=== PATIENT | female | born 1970 | race African-American/Black ===

== ENCOUNTER 2024-03-11 07:58 | Emergency (ER) | payer OTHER ==
[2024-03-11] MEDS ORDERED: Ketorolac Tromethamine 30 MG (1 mL) VIAL ONE (08:29)
== END 2024-03-11 08:48 | disposition home or self-care (01) ==
LOC: CSHERS 07:58
DX: M54.50 Low back pain, unspecified (principal); I10 Essential (primary) hypertension
CPT/HCPCS: 96372; 99283; J1885